=== PATIENT | male | born 1995 | race American Indian/Alaskan Native ===

== ENCOUNTER 2017-12-29 14:59 | Emergency (ER) | payer OTHER ==
--- NOTE | 2017-12-29 15:34 | EDM.PDOC ---
ED HPI GENERAL MEDICAL PROBLEM - General Chief Complaint: ENT Problem Stated Complaint: COLD [id number] Time Seen by Provider: 12/29/17 15:26 Source of Information: Reports: Patient, RN, RN Notes Reviewed History Limitations: Reports: No Limitations - History of Present Illness INITIAL COMMENTS - FREE TEXT/NARRATIVE: Patient presents to ER with complaint of sore throat, right ear pain, and neck sore progressively getting worse since Saturday. He has had fever, chills and shortness of breath at times. No nausea, vomiting, diarrhea or chest pain. Pain is 8/10. Onset Date: 12/27/17 Duration: Getting Worse Location: Reports: Generalized Quality: Reports: Ache Severity: Moderate Improves with: Reports: None Worsens with: Reports: None Associated Symptoms: Reports: No Other Symptoms Throat Pain Score (Numeric/FACES): 8 - Related Data Allergies Allergy/AdvReac Type Severity Reaction Status Date / Time No Known Allergies Allergy Verified 12/29/17 15:04 Home Meds: Home Meds . [No Known Home Meds] 12/29/17 [History] Past Medical History - Past Health History Medical/Surgical History: Denies Medical/Surgical History HEENT History: Reports: None Cardiovascular History: Reports: None Respiratory History: Reports: None Gastrointestinal History: Reports: None Genitourinary History: Reports: None Musculoskeletal History: Reports: None Neurological History: Reports: None Psychiatric History: Reports: None Endocrine/Metabolic History: Reports: Obesity/BMI 30+ Hematologic History: Reports: None Immunologic History: Reports: None Oncologic (Cancer) History: Reports: None Dermatologic History: Reports: None Social & Family History - Family History Family Medical History: Noncontributory - Tobacco Use Smoking Status *Q: Never Smoker Second Hand Smoke Exposure: No - Caffeine Use Caffeine Use: Reports: None - Recreational Drug Use Recreational Drug Use: No ED ROS ENT - Review of Systems Review Of Systems: ROS reveals no pertinent complaints other than HPI. ED EXAM, ENT - Physical Exam Exam: See Below Exam Limited By: No Limitations General Appearance: Alert, WD/WN, No Apparent Distress Eye Exam: Bilateral Eye: EOMI, Normal Inspection, PERRL Ears: Normal External Exam, Normal Canal, Hearing Grossly Normal, Normal TMs Nose: Normal Inspection, Normal Mucousa, No Blood Mouth/Throat: Other (Tonsils +3 with exudates and erythema.) Head: Atraumatic, Normocephalic Neck: Normal Inspection, Supple, Non-Tender, Full Range of Motion Respiratory/Chest: No Respiratory Distress, Lungs Clear, Normal Breath Sounds, No Accessory Muscle Use, Chest Non-Tender Cardiovascular: Normal Peripheral Pulses, Regular Rate, Rhythm, No Edema, No Gallop, No JVD, No Murmur, No Rub GI/Abdominal: Normal Bowel Sounds, Soft, Non-Tender, No Organomegaly, No Distention, No Abnormal Bruit, No Mass (Male) Exam: Deferred Rectal (Males) Exam: Deferred Back: Normal Inspection, Full Range of Motion Extremities: Normal Inspection, Normal Range of Motion, Non-Tender, No Pedal Edema, Normal Capillary Refill Neurological: Alert, Oriented Psychiatric: Flat Affect Skin: Warm, Dry, Intact, Normal Color, No Rash Lymphatic: Other (anterior cervical +2-3.) Course - Vital Signs Last Recorded V/S: Last Vital Signs Temp 99.3 F 12/29/17 15:13 Pulse 108 H 12/29/17 15:07 Resp 16 12/29/17 15:07 BP 145/89 H 12/29/17 15:07 Pulse Ox 100 12/29/17 15:07 - Orders/Labs/Meds Labs: Rapid Strep: Positive Departure - Departure Time of Disposition: 15:33 Disposition: Home, Self-Care 01 Condition: Fair Clinical Impression: Strep throat - Discharge Information *PRESCRIPTION DRUG MONITORING PROGRAM REVIEWED*: No *COPY OF PRESCRIPTION DRUG MONITORING REPORT IN PATIENT FLAQUITO: No Instructions: Strep Throat, [id number], Sore Throat, [id number] Referrals: PCP,None [Primary Care Provider] - Forms: ED Department Discharge Additional Instructions: RX: Augmentin Follow up with your primary care facility May use Tylenol and/or Ibuprofen as directed for fever/pain
== END 2017-12-29 15:36 | disposition home or self-care (01) ==
LOC: DL.ED 14:59
DX: J02.0 Streptococcal pharyngitis (principal)
CPT/HCPCS: 87430; 99283

== ENCOUNTER 2019-11-22 03:17 | Emergency (ER) | payer SELFPAY ==
[2019-11-22] MEDS ORDERED: Bacitracin Oint 1 GM U/D Packet TOP ONE (03:27)
--- NOTE | 2019-11-22 03:31 | EDM.PDOC ---
ED HPI GENERAL MEDICAL PROBLEM - General Chief Complaint: Lower Extremity Injury/Pain Stated Complaint: BROKEN ANKLE Time Seen by Provider: 11/22/19 03:28 Source of Information: Reports: Patient, RN History Limitations: Reports: No Limitations - History of Present Illness INITIAL COMMENTS - FREE TEXT/NARRATIVE: ED with c/o pain to right ankle, walking down hill stepped in hole and fell, scrape left knee. Pain with weight bearing on right. Right Lower Ankle Pain Score (Numeric/FACES): 8 - Related Data Allergies Allergy/AdvReac Type Severity Reaction Status Date / Time No Known Allergies Allergy Verified 11/22/19 03:19 Home Meds: Home Meds . [No Known Home Meds] 12/29/17 [History] Past Medical History - Past Health History Medical/Surgical History: Denies Medical/Surgical History HEENT History: Reports: None Cardiovascular History: Reports: None Respiratory History: Reports: None Gastrointestinal History: Reports: None Genitourinary History: Reports: None Musculoskeletal History: Reports: None Neurological History: Reports: None Psychiatric History: Reports: None Endocrine/Metabolic History: Reports: Obesity/BMI 30+ Hematologic History: Reports: None Immunologic History: Reports: None Oncologic (Cancer) History: Reports: None Dermatologic History: Reports: None Social & Family History - Family History Family Medical History: Noncontributory - Caffeine Use Caffeine Use: Reports: None Review of Systems - Review of Systems Review Of Systems: Comprehensive ROS is negative, except as noted in HPI. ED EXAM, GENERAL - Physical Exam Exam: See Below Exam Limited By: No Limitations General Appearance: Alert, Mild Distress, Obese Ears: Normal External Exam, Hearing Grossly Normal Throat/Mouth: Normal Voice Head: Atraumatic, Normocephalic Neck: Full Range of Motion Respiratory/Chest: No Respiratory Distress, Normal Breath Sounds Cardiovascular: Normal Peripheral Pulses, Regular Rate, Rhythm Extremities: Joint Swelling (right ankle), Limited Range of Motion. No: Normal Range of Motion Neurological: Alert, Oriented, Normal Cognition, Normal Reflexes, No Motor/Sensory Deficits Psychiatric: Normal Affect, Normal Mood Skin Exam: Wound/Incision (abrasion right lateral knee and lateral holbrook) Course - Vital Signs Last Recorded V/S: Last Vital Signs Temp 98.0 F 11/22/19 03:25 Pulse 104 H 11/22/19 03:25 Resp 20 08/09/20 03:25 BP 146/92 H 11/22/19 03:25 Pulse Ox 99 11/22/19 03:25 - Orders/Labs/Meds Meds: Medications Discontinued Medications Generic Name Dose Route Start Last Admin Trade Name Gloria PRN Reason Stop Dose Admin Bacitracin 1 dose 11/22/19 03:27 11/22/19 03:37 Bacitracin Oint 1 Gm TOP 11/22/19 03:28 1 dose ONETIME ONE Administration Ibuprofen 600 mg 11/22/19 04:01 11/22/19 04:07 Motrin PO 11/22/19 04:02 600 mg ONETIME ONE Administration Departure - Departure Time of Disposition: 04:14 Disposition: Home, Self-Care 01 Condition: Good Clinical Impression: Ankle sprain Qualifiers: Encounter type: initial encounter Involved ligament of ankle: unspecified ligament Laterality: right Qualified Code(s): S93.401A - Sprain of unspecified ligament of right ankle, initial encounter - Discharge Information *PRESCRIPTION DRUG MONITORING PROGRAM REVIEWED*: No *COPY OF PRESCRIPTION DRUG MONITORING REPORT IN PATIENT FLAQUITO: No Instructions: Ankle Sprain, [id number], Crutch Use, Adult, [id number] Forms: ED Department Discharge Additional Instructions: marilyn wrap ice elevation crutches with weight bearing as tolerated alternate tylenol 650mg and ibuprofen 600mg every 4 hours as needed for discomfort follow up clinic 2 weeks if not improving keep abrasion clean and dry cover during day, follow up if redness swelling or drainage from wound Sepsis Event Note (ED) - Evaluation Sepsis Screening Result: No Definite Risk - Focused Exam Vital Signs: Vital Signs Temp Pulse Resp BP Pulse Ox 11/22/19 03:25 98.0 F 104 H 20 146/92 H 99
[2019-11-22] MEDS ORDERED: Ibuprofen 600 MG Tab PO ONE (04:01)
--- NOTE | 2019-11-22 04:11 | CR ---
PROCEDURE INFORMATION: Exam: XR Right Ankle Exam date and time: 11/22/2019 3:44 AM Age: 24 years old Clinical indication: Other: Pain; Additional info: Pain, swelling stepped in hole TECHNIQUE: Imaging protocol: XR Right ankle. Views: 3 or more views. COMPARISON: No relevant prior studies available. FINDINGS: Bones/joints: No acute fracture or dislocation Soft tissues: Soft tissue swelling. IMPRESSION: 1. Soft tissue swelling. 2. No acute fracture or dislocation
== END 2019-11-22 04:35 | disposition home or self-care (01) ==
LOC: DL.ED 03:17
DX: S93.401A Sprain of unspecified ligament of right ankle, initial encounter (principal); S80.211A Abrasion, right knee, initial encounter; S80.811A Abrasion, right lower leg, initial encounter; E66.9 Obesity, unspecified; Z68.42 Body mass index [BMI] 45.0-49.9, adult; W17.89XA Other fall from one level to another, initial encounter
CPT/HCPCS: 73610; 99283; A9270

== ENCOUNTER 2021-12-24 20:25 | Emergency (ER) | payer SELFPAY ==
[2021-12-24 21:08] LABS: AMPHETAMINES,URINE POSITIVE (NEGATIVE); BARBITURATES,URINE NEGATIVE (NEGATIVE); BENZODIAZEPINE,URINE NEGATIVE (NEGATIVE); MDMA (ECSTASY), URINE NEGATIVE (NEGATIVE); METHADONE,URINE NEGATIVE (NEGATIVE); METHAMPHETAMINES,URINE POSITIVE (NEGATIVE); OPIATES,URINE NEGATIVE (NEGATIVE); OXYCODONE,URINE NEGATIVE (NEGATIVE); PHENCYCLIDINE,URINE NEGATIVE (NEGATIVE); TCA,URINE NEGATIVE (NEGATIVE)
[2021-12-24 21:23] LABS: ANION GAP 14.9 mEq/L (7-13); CHLORIDE,CL 104 mmol/L (98-107); SODIUM,NA 140 mmol/L (136-145)
[2021-12-24 21:25] LABS: ESTIMATED GFR 122 mL/min (>=60)
== END 2021-12-24 22:38 | disposition home or self-care (01) ==
LOC: DL.ED 20:25
DX: R56.9 Unspecified convulsions (principal); Z72.0 Tobacco use
CPT/HCPCS: 36415; 70450; 70486; 72125; 80053; 80305-QW; 80307; 81001; 82150; 83690; 85025; 99284